=== PATIENT | male | born 1970 | race Caucasian/White ===

== ENCOUNTER 2018-03-28 20:15 | Emergency (ER) | payer OTHER, BC ==
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
[2018-03-28 22:28] VITALS: BP 131/84
== END 2018-03-28 22:15 | disposition home or self-care (01) ==
LOC: ER 20:15
DX: S50.312A Abrasion of left elbow, initial encounter (principal); R51 Headache; M54.2 Cervicalgia; M25.532 Pain in left wrist; V87.7XXA Person injured in collision between other specified motor vehicles (traffic), initial encounter; F17.200 Nicotine dependence, unspecified, uncomplicated
CPT/HCPCS: 99283